=== PATIENT | female | born 1970 | race Caucasian/White ===

== ENCOUNTER 2021-06-03 10:25 | Emergency (ER) | payer OTHER ==
[~2021-06-03] VITALS: Ht 157.5 cm; Wt 108.0 kg
[2021-06-03 11:05] VITALS: BP_SYST 136
[2021-06-03 12:34] VITALS: BP_SYST 136
== END 2021-06-03 12:33 | disposition home or self-care (01) ==
LOC: SED 10:25
DX: M54.32 Sciatica, left side (principal); M54.31 Sciatica, right side; R60.0 Localized edema; E66.01 Morbid (severe) obesity due to excess calories; Z88.5 Allergy status to narcotic agent; Z88.6 Allergy status to analgesic agent; Z68.41 Body mass index [BMI] 40.0-44.9, adult
CPT/HCPCS: 99281